=== PATIENT | female | born 1980 | race Caucasian/White ===

== ENCOUNTER → 2017-11-17 | Outpatient (CLI) | payer OTHER | LOC: LAB SHORT 14:09 → PLD 14:09 | DX: R87.610 Atypical squamous cells of undetermined significance on cytologic smear of cervix (ASC-US) (principal) | CPT/HCPCS: 88305 ==

== ENCOUNTER 2018-11-11 22:25 | Emergency (ER) | payer OTHER ==
[~2018-11-11] VITALS: Ht 162.6 cm; Wt 56.7 kg
[2018-11-11] MEDS ORDERED: SPIR25 PO (22:41)
[2018-11-11] MEDS ORDERED: THYR60 PO (22:42)
[2018-11-11] MEDS ORDERED: Testopel75 MG (22:42)
== END 2018-11-11 23:02 | disposition home or self-care (01) ==
LOC: ER 22:25
DX: S03.43XA Sprain of jaw, bilateral, initial encounter (principal); X58.XXXA Exposure to other specified factors, initial encounter; Z79.899 Other long term (current) drug therapy
CPT/HCPCS: 99283

== ENCOUNTER 2019-06-28 21:07 | Emergency (ER) | payer OTHER ==
[~2019-06-28] VITALS: Ht 162.6 cm; Wt 56.7 kg
[~2019-06-28 21:07] MED LIST: SPIR25 PO; THYR60 PO; Testopel75 MG
[2019-06-28] MEDS ORDERED: Voltaren100 GM TOP (23:00)
== END 2019-06-28 23:15 | disposition home or self-care (01) ==
LOC: ER 21:07
DX: M70.41 Prepatellar bursitis, right knee (principal); M70.42 Prepatellar bursitis, left knee; Z79.899 Other long term (current) drug therapy
CPT/HCPCS: 73562-LT; 73562-RT; 96372; 99283-25; J1885

== ENCOUNTER 2019-09-26 12:50 | Day surgery (SDC) | payer OTHER ==
[~2019-09-26] VITALS: Ht 162.6 cm; Wt 57.8 kg
[~2019-09-26 12:50] MED LIST changes: +Voltaren100 GM TOP
[2019-09-26] MEDS ORDERED: Spironolactone100 MG PO (13:49)
[2019-09-26] MEDS ORDERED: THYROID30 MG PO (13:49)
== END 2019-09-26 15:14 | disposition home or self-care (01) ==
LOC: ORSCSDS 12:50
PROVIDERS: Obstetrics & Gynecology
PROC: 0UDB7ZX Extraction of Endometrium, Via Natural or Artificial Opening, Diagnostic (ICD-10-PCS; principal; 2019-09-26 14:00)
PROC: 0U5B8ZZ Destruction of Endometrium, Via Natural or Artificial Opening Endoscopic (ICD-10-PCS; principal; 2019-09-26 14:00)
DX: N92.1 Excessive and frequent menstruation with irregular cycle (principal); E03.9 Hypothyroidism, unspecified; Z79.899 Other long term (current) drug therapy
CPT/HCPCS: 88305; J1100; J1885; J2250; J2405; J2704; J3010; J7120

== ENCOUNTER → 2019-12-04 | Outpatient (CLI) | payer OTHER ==
[~2019-12-04] MED LIST changes: +Spironolactone100 MG PO; +THYROID30 MG PO
== END | disposition home or self-care (01) ==
LOC: PLD 15:13 → LAB SHORT 15:13
DX: D06.0 Carcinoma in situ of endocervix (principal)
CPT/HCPCS: 88305

== ENCOUNTER → 2020-06-09 | Outpatient (CLI) | payer OTHER ==
[2020-06-10 14:08] LABS: HPV 16 Positive (Negative); HPV 18 Negative (Negative); HPV OTHER HR TYPES Negative (Negative)
== END | disposition home or self-care (01) ==
LOC: LAB 11:15 → LAB SHORT 11:15
PROVIDERS: Obstetrics & Gynecology
DX: N87.1 Moderate cervical dysplasia (principal)
CPT/HCPCS: 87624; G0123